=== PATIENT | female | born 1980 | race African-American/Black ===

== ENCOUNTER → 2023-12-04 11:22 | Outpatient (CLI) | payer BC, SELFPAY ==
--- NOTE | ~2023-12-04 | MM_ITS ---
EXAMINATION: MM screening [facility] BI w maria g HISTORY: Screening TECHNIQUE: Craniocaudal and mediolateral oblique 3-D tomosynthesis images were obtained and synthetic 2-D images were generated. CAD analysis was submitted and interpreted. COMPARISON: No prior studies for comparison. BREAST PARENCHYMAL COMPOSITION: Not dense: There are scattered areas of fibroglandular density. FINDINGS: There is a mass in the lower inner quadrant of the right breast posteriorly. There is a mas s in the upper inner quadrant of the left breast anteriorly. There are no suspicious calcifications o r architectural distortion. IMPRESSION: 1. Bilateral breast masses. 2. Additional mammographic views and possible breast ultrasound are recommended. BI-RADS Category 0: Incomplete: Needs additional imaging evaluation. Reviewed, dictated and finalized at location A. LOG LIBRARY ASSISTANT IMPRESSION: 1. Bilateral breast masses. 2. Additional mammographic views and possible breast ultrasound are recommended . BI-RADS Category 0: Incomplete: Needs additional imaging evaluation.
== END ==
PROVIDERS: PCP Registered Nurse; Visit Provider Registered Nurse
DX: Z12.31 Encounter for screening mammogram for malignant neoplasm of breast (principal); R92.8 Other abnormal and inconclusive findings on diagnostic imaging of breast
CPT/HCPCS: 77063; 77067

== ENCOUNTER 2024-04-17 08:45 | Outpatient (CLI) | payer BC, SELFPAY ==
--- NOTE | ~2024-04-17 | MMUS_ITS ---
EXAMINATION: MM diagnostic [facility] BI w maria g, US breast BI limited HISTORY: Follow-up bilateral breast asymmetries TECHNIQUE: Additional 3-D tomosynthesis images of the breasts were performed and synthetic 2-D images were generated. CAD analysis was submitted and interpreted. High resolution limited bilateral breast ultrasound was performed. COMPARISON: 12/04/2023 BREAST PARENCHYMAL COMPOSITION: Not dense: There are scattered areas of fibroglandular density. FINDINGS: MAMMOGRAPHIC FINDINGS: There is a mass in the lower inner quadrant of the right breast, middle-posterior depth. There is a m ass in the upper inner quadrant of the left breast, anterior depth. ULTRASOUND: Limited right breast ultrasound: At 5:00, 6 cm from the nipple, there is an irregular shaped antipara llel hypoechoic 7 mm mass without internal vascularity or posterior features. Limited left breast ultrasound: At 10:00, 8 cm from the nipple, there is a small 3 mm cyst. No defini te sonographic correlate to the focal mass seen in the upper inner quadrant of the left breast anteri ok. This mass is slightly lobulated and central lucency on mammogram, likely benign intramammary ly mph node. IMPRESSION: 1. Abnormal 7 mm right breast mass at 5:00, 6 cm from the nipple. Ultrasound-guided right breast biop sy recommended. 2. Probable benign focal mass upper inner quadrant of the left breast without definite sonographic co rrelate. Six-month follow-up diagnostic left mammogram with possible additional ultrasound recommende d. BI-RADS CATEGORY 4-SUSPICIOUS ABNORMALITY RECOMMENDATION: Reviewed, dictated and finalized at location B. IMPRESSION: 1. Abnormal 7 mm right breast mass at 5:00, 6 cm from the nipple. Ultrasound-gu ided right breast biopsy recommended. 2. Probable benign focal mass upper inner quadrant of the left breast without d efinite sonographic correlate. Six-month follow-up diagnostic left mammogram wi th possible additional ultrasound recommended. BI-RADS CATEGORY 4-SUSPICIOUS ABNORMALITY RECOMMENDATION:
== END 2024-04-17 08:46 ==
LOC: MICIMG 08:46
PROVIDERS: PCP Registered Nurse; Visit Provider Registered Nurse
DX: R92.8 Other abnormal and inconclusive findings on diagnostic imaging of breast (principal); N63.10 Unspecified lump in the right breast, unspecified quadrant; N63.22 Unspecified lump in the left breast, upper inner quadrant
CPT/HCPCS: 76642; 77062; 77066; G0279